=== PATIENT | female | born 1985 | race Caucasian/White ===

== ENCOUNTER → 2019-02-23 13:15 | Emergency (ER) | payer OTHER ==
[~2019-02-23 13:15] MED LIST: Misoprostol TAB* 200 MCG VAGINAL ONE; Morphine 4 MG/ML VIAL (1 ml) 4 MG/ML VIAL IV ONE; NS 0.9% 1000 ML** 1,000 ML IV ONE; Ondansetron INJ* 2 MG/ML VIAL IV ONE
--- NOTE | 2019-02-23 13:40 | ED ---
- HPI Summary HPI Summary: Pt is a 33 y/o female who presents to the ED c/o vaginal bleeding. She is currently ten weeks , and this is her second ; the first one was successful. She started spotting last night, this morning she passed a blood clot and the bleeding became very heavy. She also experienced associated abdominal pain described as cramping and currently rated at a 5/10. Patient also reports mild back pain. She is changing her pad every 30-40 minutes, and her adjunct professor of english did some bloodwork this morning to check her hormone levels. She denies dizziness or heart palpitations. - History of Current Complaint Chief Complaint: EDOBProblems Stated Complaint: 10 WEEKS PREG/MISCARRIAGE PER PT Hx Obtained From: Patient Chief Complaint: Vaginal Bleeding Onset/Duration: Started Days Ago - 1, Worse Since Timing: Constant Current Severity: Moderate Pain Intensity: 5 Location of Pain: Other: - abdominal Character: Cramping Aggravating Factors: Nothing Alleviating Factors: Nothing Associated Signs and Symptoms: Positive: Back Pain, Vaginal Bleeding or Discharge - Assessment SAB: 0 IEA: 0 - Additional Pertinent History Maternal Blood Type and Rh: B Positive - Allergies/Home Medications Allergies/Adverse Reactions: Allergies Allergy/AdvReac Type Severity Reaction Status Date / Time kiwi Allergy Difficulty Verified 02/23/19 14:13 Breathing/Wheezing Penicillins Allergy Nausea And Verified 02/23/19 14:13 Vomiting Home Medications: Home Medications Escitalopram Oxalate [Lexapro 10 mg] 10 mg PO DAILY 02/23/19 [History Confirmed 02/23/19] PMH/Surg Hx/FS Hx/Imm Hx Musculoskeletal History: Reports: Hx of Fracture(s) - R ankle Psychiatric History: Reports: Hx Anxiety - Surgical History Surgery Procedure, Year, and Place: ORIF R ankle Infectious Disease History: No Infectious Disease History: Denies: Traveled Outside the [place] in Last 30 Days - Family History Known Family History: Positive: Other - stroke, [place], anxiety - Social History Alcohol Use: None Hx Substance Use: No Substance Use Type: Reports: None Hx Tobacco Use: No Smoking Status (MU): Never Smoked Tobacco Have You Smoked in the Last Year: No Review of Systems Negative: Palpitations Positive: Abdominal Pain - cramping Positive: other - vaginal bleeding w/ clot Positive: Myalgia - mild back pain Neurological: Other - NEGATIVE: dizziness All Other Systems Reviewed And Are Negative: Yes Physical Exam - Summary Physical Exam Summary: VITAL SIGNS: Reviewed. GENERAL: Patient is a well-developed and nourished female who is lying comfortable in the stretcher. Patient is not in any acute respiratory distress. Pt is crying and very upset. HEAD AND FACE: Normocephalic and atraumatic. EYES: PERRLA, EOMI x 2, No injected conjunctiva. EARS: Hearing grossly intact. Ear canals and tympanic membranes are WNL. MOUTH: Oropharynx within normal limits. NECK: Supple, trachea is midline, no adenopathy, no JVD. CHEST: Symmetric, no tenderness at palpation LUNGS: Clear to auscultation bilaterally. No wheezing or crackles. CVS: RRR, S1 and S2 present, no murmurs or gallops appreciated. ABDOMEN: Tenderness in the lower abd. No signs of distention. Positive bowel sounds. No rebound no guarding, and no masses palpated. No abdominal bruit or pulsations. EXTREMITIES: FROM in all major joints, no edema, no cyanosis or clubbing. NEURO: Alert and oriented x 3. No acute neurological deficits. Speech is normal. SKIN: Dry and warm SENIOR DIGITAL DESIGNER: Female postdoctoral research fellow, Dagmar JACKSON, is present during the examination. External genitalia: within normal limits. No rashes, lesions or ecchymosis. Speculum exam : vaginal sauer with no lesions, masses, or rashes. Significant amount of blood and continues to bleed, removed some products of conception from cervix. No adnexal masses. All cultures were collected and send to the lab. - Physical Exam Triage Information Reviewed: Yes Vital Signs Reviewed: Yes Diagnostics - Vital Signs Vital Signs Temp Pulse Resp BP Pulse Ox 02/23/19 13:16 98.5 F 87 20 145/93 97 - Laboratory Result Diagrams: 02/23/19 14:25 02/23/19 14:25 Lab Statement: Any lab studies that have been ordered have been reviewed, and results considered in the medical decision making process. - Ultrasound No standard instances Ultrasound Interpretation Completed By: Radiologist Summary of Ultrasound Findings: US: 1. LIMITED STUDY. 2. THERE IS A SMALL AMOUNT OF FREE FLUID WITHIN THE CUL-DE-SAC. THIS MAY BE PHYSIOLOGIC WITHIN A REPRODUCTIVE AGE FEMALE. 3. NO INTRAUTERINE GESTATION IS IDENTIFIED. THE DIFFERENTIAL INCLUDES EARLY INTRAUTERINE GESTATION, MISSED , OR ECTOPIC . RECOMMEND CORRELATION WITH SERIAL. BETA-HCG LEVELS AND FOLLOW-UP IMAGING. ED physician reviewed radiology report. Re-Evaluation - Re-Evaluation First Eval Re-Evaluation Time: 13:50 Change: Unchanged Comment: Performed pelvic exam. Second Eval Re-Evaluation Time: 16:15 Change: Improved Comment: Pt feels better and is no longer in pain. Course/Dx - Course Assessment/Plan: This patient is a 33-year-old female who presents to the emergency department with a chief complaint of having vaginal bleeding. The patient reports that she is 10 weeks . The patient is being . The patient was seen by the adjunct professor of english this morning and she was told that the patient is going to miscarriage. The patient now is having severe abdominal cramping and severe vaginal bleeding, she reports that she is changing her pads every half an hour. Pelvic exam: I removed blood clots and likely tissue from the cervix however the patient continues to have pain. In the ED course the patient was given IV fluids, Zofran for the nausea and vomiting and morphine for the pain. Test results without any significant abnormality, and the H&H is a stable. Pelvic ultrasound impression, limited study. There is small amount of free fluid in the cul-de-sac. These may be a physiologic within the reproductive age female. No intrauterine gestation is identified. The differential includes early intrauterine gestation. Missed , or ectopic . Recommend correlation with dysuria beta-hCGs and follow-up imaging. I discussed my physical exam and findings with and Dr. Manning was consulted for this patient. This patient was seen by Dr. Manning and she recommends misoprostol intravaginal and she will repeat the treatment in [address] Manning sent the prescription for the patient to the pharmacy. Therefore, she recommends for the patient to be discharged home and follow up at her office. I discussed all the findings and test results with the patient. Patient was instructed to return to the emergency room immediately if any of the symptoms return worsens. Plan of care was discussed with the patient and understands and agrees. All questions were answered at patient satisfaction. There were no further complaints or concerns. Lung exam before discharge: CTA B/ L. Good air exchange. No wheezing or crackles heard. CVS: S1 and S2 present. No murmurs appreciated. Patient is alert and oriented x 3. Patient is hemodynamically stable. Patient will be discharged home with follow up PCP in the next 2-3 days. - Diagnoses Provider Diagnoses: Miscarriage - Provider Notifications Discussed Care Of Patient With: Traci Manning Time Discussed With Above Provider: 14:35 Instructed by Provider To: Other - She will come to the ED for a consult. At 16: 00 she is at bedside, and requests Cytotec. She will give intravaginal Misoprostol and discharge the pt. Discharge - Sign-Out/Discharge Documenting (check all that apply): Patient Departure - Discharge Patient Received Moderate/Deep Sedation with Procedure: No - Discharge Plan Condition: Stable Disposition: HOME Patient Education Materials: Miscarriage (ED) Forms: *Work Release Referrals: Amada Gongora MD [Primary Care Provider] - 3 Days Traci Manning MD [Medical Doctor] - (2-3 days) Additional Instructions: RETURN TO THE ED FOR ANY WORSENING OR NEW SYMPTOMS. - Billing Disposition and Condition Condition: STABLE Disposition: Home - Attestation Statements Document Initiated by Scribe: Yes Documenting Scribe: Millicent Frank Provider For Whom Rupale is Documenting (Include Credential): Cruz Colin MD Scribe Attestation: Millicent Rios, scribed for Cruz Colin MD on 02/25/19 at 2132. Scribe Documentation Reviewed: Yes Provider Attestation: The documentation as recorded by the Millicent myers accurately reflects the service I personally performed and the decisions made by Cruz greene MD Status of Scribe Document: Viewed
[2019-02-23 14:35] LABS: ABS Basophils 0.4 10^3/ul (0-0.2); ABS Eosinophils 0 10^3/ul (0-0.6); ABS Lymphocytes 1.9 10^3/ul (1.0-4.8); ABS Monocytes 0.4 10^3/ul (0-0.8); ABS Neutrophils 6.3 10^3/ul (1.5-7.7); ABS Nucleated RBC 0 10^3/ul; Eosinophil % 0.2 %; Hematocrit 38 % (33-41); Hemoglobin 12.9 g/dL (12.0-16.0); Lymphocyte % 20.8 %; Mean Corpuscular HGB Conc 34 g/dL (31-36); Mean Corpuscular Hemoglobin 29 pg (27-31); Mean Corpuscular Volume 87 fL (80-97); Mean Platelet Volume 7.6 fL (7.4-10.4); Nucleated Red Blood Cells % 0; Platelet Count 249 10^3/uL (150-450); Red Blood Count 4.39 10^6 /uL (3.70-4.87); Red Cell Distribution Width 13 % (10.5-15)
[2019-02-23 14:50] LABS: Albumin/Globulin Ratio 1.5 (1-3); BUN/Creatinine Ratio 11.1 (8-20); Calcium 9.1 mg/dL (8.6-10.3); EGFR African American 155.5 (>60); EGFR Non-African American 128.5 (>60); Globulin 2.7 g/dL (2-4); Potassium 3.8 mmol/L (3.5-5.0); Total Bilirubin 0.9 mg/dL (0.2-1.0); Total Protein 6.7 g/dL (6.4-8.9)
[2019-02-23 16:18] VITALS: BP 134/89
[2019-02-23 16:31] LABS: Urine Appearance Clear; Urine Bacteria 1+ (Absent); Urine Bilirubin Negative (Negative); Urine Blood 3+ (Negative); Urine Color Yellow; Urine Glucose Negative (Negative); Urine Ketones 1+ (Negative); Urine Nitrite Negative (Negative); Urine Protein Negative (Negative); Urine Red Blood Cell 3+(>10/hpf) (Absent); Urine Specific Gravity 1.005 (1.010-1.030); Urine Squamous Epithelial Cell Present (Absent); Urine Urobilinogen Negative (Negative); Urine White Blood Cell Trace(0-5/hpf) (Absent)
--- NOTE | 2019-02-23 17:29 | CONS ---
CONSULTATION NOTE FOR AN EMERGENCY ROOM VISIT: DATE OF CONSULT: 02/23/19 - EMERGENCY DEPT CHIEF COMPLAINT: Bleeding and cramping. HISTORY OF PRESENT ILLNESS: The patient is a 33-year-old 2, para 1-0-0- 1, who presented after diagnosis of missed at 9 weeks, presented to the ER with heavy bleeding and passing clots. The patient had her initial speculum exam with ER physician, who removed clots and what looked like products of conception. The patient was sent for a pelvic ultrasound after this , which indeed revealed small amount of free fluid in the cul-de-sac. No intrauterine gestation was identified and given prior documented intrauterine gestation, the confirmation is of a complete as there was a confirmed 9 -week intrauterine gestational sac today. The patient notes that the bleeding has slowed down and the cramping did improve; however, she does have ongoing bleeding and had a hemoglobin of 12.9 in the emergency room with no evidence of drop in blood pressure or elevation of pulse from standing to lying down. PAST OB HISTORY: Normal spontaneous vaginal delivery in 2017. PAST MEDICAL HISTORY: Anxiety. PAST SURGICAL HISTORY: Open reduction and internal fixation in 2006 on the right ankle and hardware removal in 2007 on the right ankle. ALLERGIES: Include PENICILLIN and kiwi. SOCIAL HISTORY: . 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 No tobacco or drug use. PHYSICAL EXAM: Vital Signs: Pulse is 82, blood pressure 123/93 sitting, standing pulse is 93, blood pressure 134/89; respiratory rate is 11; pO2 saturation is 97%. Abdomen is scaphoid, nontender. Pelvic Exam: External genitalia with no active bleeding. Vaginal Exam: Blood in the cul-de-sac. Cervix appears to be closed. No evidence of POC, just some clot which was removed bimanually. Uterus was anteverted, nontender. Adnexa were nontender. Extremities without edema, nontender. ASSESSMENT AND PLAN: The patient is a 33-year-old 2, para 1-0-0-1, with probable complete loss/complete . The patient is B positive. No RhoGAM is indicated. Given the clot filled in the vagina, we will administer misoprostol 800 mcg and repeat the dosing in 3 hours. The patient has had a prescription sent to [facility], which she will place the tablets in the vagina 3 hours after her last dosing. If there is any evidence of any clot that needs to be expelled, we will help with that process. The patient is to call the office for followup in 2 weeks' time and then 4 to 6 weeks for a post miscarriage followup. Intrauterine contents will be sent for pathology to rule out molar . Conversation was had both with the patient and her . They verbalized understanding. Precautions were reviewed. If fevers over 101 and bleeding more than a pad an hour, the patient is to return to the emergency room. [id number]/[facility] #: [id number] DENISE
== END | disposition home or self-care (01) ==
LOC: ED 13:15
DX: O03.9 Complete or unspecified spontaneous abortion without complication (principal); O09.521 Supervision of elderly multigravida, first trimester; Z3A.10 10 weeks gestation of pregnancy; Z88.0 Allergy status to penicillin
CPT/HCPCS: 36415; 76801; 80053; 81003; 81015; 83605; 84702; 85025; 85730; 86850; 86900; 86901; 87086; 88305; 96361; 96374; 96375; 99285; A9270-GY; J2270; J2405